=== PATIENT | female | born 1950 | race Caucasian/White ===

== ENCOUNTER 2017-06-06 10:21 | Outpatient (CLI) | payer MEDICARE, OTHER ==
--- NOTE | 2017-06-06 17:01 | XRAY Report ---
TWO VIEW CHEST: 06/06/2017 CLINICAL INDICATION: Cough. FINDINGS: Frontal and lateral views of the chest demonstrate a normal cardiac silhouette. Minimal linear atelectasis or scarring is seen at the left base. No effusion or pneumothorax is present. IMPRESSION: MINIMAL LEFT BASILAR ATELECTASIS OR SCARRING. TD: 06/06/2017 17:00
== END 2017-06-06 10:22 | disposition home or self-care (01) ==
LOC: DI 10:21
PROVIDERS: ATTEND Family Medicine
DX: J98.11 Atelectasis (principal)
CPT/HCPCS: 71046

== ENCOUNTER 2019-03-19 09:24 | Day surgery (SDC) | payer MEDICARE, OTHER ==
[2019-03-19] MEDS ORDERED: LACTATED RINGERS 1,000 ML IV ONE (09:56)
[2019-03-19 11:40] VITALS: BP 117/90
== END 2019-03-19 09:25 | disposition home or self-care (01) ==
LOC: SDS 09:24
PROVIDERS: ATTEND Surgery
PROC: 0DJD8ZZ Inspection of Lower Intestinal Tract, Via Natural or Artificial Opening Endoscopic (ICD-10-PCS; principal; 2019-03-19 10:45)
DX: Z12.11 Encounter for screening for malignant neoplasm of colon (principal); Z85.038 Personal history of other malignant neoplasm of large intestine; Z98.0 Intestinal bypass and anastomosis status; Z90.49 Acquired absence of other specified parts of digestive tract
CPT/HCPCS: G0105; J7120

== ENCOUNTER 2020-02-17 10:19 | Outpatient (CLI) | payer MEDICARE, OTHER ==
--- NOTE | 2020-02-17 14:47 | XRAY Report ---
PROCEDURE: Chest 2 View X-Ray INDICATIONS: PERSISTENT COUGH X 2 YEARS TECHNIQUE: 2 view(s) of the chest. COMPARISON: Chest x-ray 06/06/2017 FINDINGS: Surgical changes and devices: Cholecystectomy clips. Lungs and pleura: Minimal left costophrenic angle blunting suggestive of scarring. No consolidations. Mediastinum: Mediastinal contours are normal. Heart size is normal. Bones and chest wall: No suspicious bony abnormalities. Soft tissues appear unremarkable. IMPRESSION: No acute pulmonary process. Reviewed by: Na Esquivel MD on 02/17/2020 2:46 PM PDT Approved by: Na Esquivel MD on 02/17/2020 2:46 PM PDT Station ID: [id number]
== END 2020-02-17 10:20 | disposition home or self-care (01) ==
LOC: DI.S 10:19
PROVIDERS: ATTEND Family Medicine
DX: R05 Cough (principal); R94.2 Abnormal results of pulmonary function studies
CPT/HCPCS: 71046

== ENCOUNTER 2021-03-24 10:51 | Outpatient (CLI) | payer MEDICARE, OTHER ==
--- NOTE | 2021-03-24 11:43 | XRAY Report ---
PROCEDURE: Lumbar Spine 2 View INDICATIONS: IMPAIRMENT OF GAIT AND BALANCE TECHNIQUE: 3 views of the lumbar spine were acquired. COMPARISON: None. FINDINGS: No definite fracture although study sensitivity is severely suboptimal secondary to scoliosis and dis cogenic changes. There is lumbar levoscoliosis. Scattered multilevel endplate spurring and diffuse fa cet arthropathy. Diffuse moderate narrowing of the lumbar disc spaces. IMPRESSION: Lumbar scoliosis. Multilevel lumbar spondylosis and facet disease. Reviewed by: Momo Bowen MD on 03/24/2021 11:42 AM PST Approved by: Momo Bowen MD on 03/24/2021 11:42 AM PST Station ID: [id number]
--- NOTE | 2021-03-24 11:45 | XRAY Report ---
PROCEDURE: Hip w/Pelvis 1V LT INDICATIONS: L HIP PAIN/IMPAIRMENT OF GAIT BALANCE TECHNIQUE: AP pelvis with lateral view(s) of the left hip(s). COMPARISON: None. FINDINGS: Severe left hip joint degeneration with [id number] appearance. There is marked subchondral cystic c hanges and spurring/sclerosis. Surgical clips projecting in the pelvis. There is moderate to severe r ight hip joint degeneration. Pelvic tilt is noted, right higher than left. IMPRESSION: Severe bilateral hip joint degeneration, left greater than right. Right higher than left pelvic tilt. Reviewed by: Momo Bowen MD on 03/24/2021 11:43 AM PST Approved by: Momo Bowen MD on 03/24/2021 11:43 AM PST Station ID: [id number]
--- NOTE | 2021-03-24 11:48 | DEXA Report ---
PROCEDURE: Dexa Spine and/or Hip INDICATIONS: LBP, LT HIP PAIN, IMPAIRMENT OF GAIT, POSTMENOPAUSE TECHNIQUE: Dual energy x-ray absorptiometry (DXA) was performed on a [employer] System. Regions measur ed are the AP Spine, femoral neck, and if needed forearm. COMPARISON: March 24, 2021 FINDINGS: Lumbar Spine: Bone Mineral Density 0.97 g/cm/cm,T score -1.6, osteopenia Left Femoral Neck: Bone Mineral Density 0.635 g/cm/cm, T score -2.9, osteoporosis (T score greater or equal to -1.0: NORMAL) (T score from -1.1 to -2.4: OSTEOPENIA) (T score less than or equal to -2.5 to: OSTEOPOROSIS) Impression: Bone mineral density consistent with osteoporosis and increased fracture risk. Patients with diagnosis of osteoporosis or osteopenia should have regular bone mineral density assess ment. For those eligible for Medicare, routine testing is allowed once every 2 years. Testing frequ ency can be increased for patients who have rapidly progressing disease or for those who are receivin g medical therapy to restore bone mass. Reviewed by: Jong Marshall MD on 03/24/2021 11:47 AM PST Approved by: Jong Marshall MD on 03/24/2021 11:47 AM PST Station ID: [id number]
== END 2021-03-24 10:52 | disposition home or self-care (01) ==
LOC: DI 10:51
PROVIDERS: ATTEND Family Medicine
DX: M47.816 Spondylosis without myelopathy or radiculopathy, lumbar region (principal); Z78.0 Asymptomatic menopausal state; M41.9 Scoliosis, unspecified; M16.0 Bilateral primary osteoarthritis of hip

== ENCOUNTER 2023-05-08 09:50 | Outpatient (CLI) | payer MEDICARE, OTHER ==
--- NOTE | 2023-05-08 13:16 | DEXA Report ---
PROCEDURE: Dexa Spine and/or Hip INDICATIONS: OSTEOPOROSIS TECHNIQUE: Dual energy x-ray absorptiometry (DXA) was performed on a [employer] System. Regions measur ed are the AP Spine, femoral neck, and if needed forearm. COMPARISON: DEXA 03/24/2021 FINDINGS: Lumbar Spine: Bone Mineral Density 1.111 g/cm/cm,T score -0.6 compared to -1.6. Left Femoral Neck: Bone Mineral Density 0.07 g/cm/cm, T score -2.4, compared to -2.9. Left Hip: Bone Mineral Density 0.584 g/cm/cm,T score -3.4, compared to -3.7. (T score greater or equal to -1.0: NORMAL) (T score from -1.1 to -2.4: OSTEOPENIA) (T score less than or equal to -2.5 to: OSTEOPOROSIS) Impression: By WHO criteria, this patient has osteoporosis within the left hip as well as severe osteopenia in th e left femoral neck although improved compared to prior exam. Patients with diagnosis of osteoporosis or osteopenia should have regular bone mineral density assess ment. For those eligible for Medicare, routine testing is allowed once every 2 years. Testing frequ ency can be increased for patients who have rapidly progressing disease or for those who are receivin g medical therapy to restore bone mass. Reviewed by: Na Esquivel MD on 05/08/2023 1:15 PM PST Approved by: Na Esquivel MD on 05/08/2023 1:15 PM PST Station ID: [id number]
== END 2023-05-08 09:51 | disposition home or self-care (01) ==
LOC: DI 09:50
PROVIDERS: ATTEND Family Medicine
DX: M81.0 Age-related osteoporosis without current pathological fracture (principal)

== ENCOUNTER 2023-09-03 11:48 | Outpatient (CLI) | payer MEDICARE, OTHER ==
[2023-09-03] MEDS ORDERED: DIATRIZOATE MEGLU/DIATRIZO SOD 30 ML BOTTLE PO ONE (11:59)
[2023-09-03] MEDS ORDERED: iohexoL-300 100 ML VIAL ONE (11:59)
[2023-09-03 12:32] LABS: CREATININE 0.7 mg/dL (0.6-1.3)
[2023-09-03] MEDS: iohexoL-300 100 ML VIAL IVP ONE (13:49)
[2023-09-03] MEDS: DIATRIZOATE MEGLU/DIATRIZO SOD 30 ML BOTTLE PO ONE (13:51)
--- NOTE | 2023-09-03 15:38 | CT Report ---
PROCEDURE: Abdomen/Pelvis W INDICATIONS: DIARRHEA CONTRAST: Omnipaque 300 100ml TECHNIQUE: After the administration of intravenous contrast, a CT scan of the abdomen and pelvis was performed. Images were recorded and evaluated at appropriate window settings. Reformats: coronal and sagittal. F or radiation dose reduction, the following was used: automated exposure control, adjustment of mA and /or kV according to patient size. COMPARISON: X-ray lumbar spine, 03/24/2021. FINDINGS: Image quality: Diagnostic. Lower chest: Unremarkable. Liver: No solid mass. Gallbladder and biliary tree: Gallbladder is surgically removed. Mild intrahepatic and intrahepatic b iliary dilation. Spleen: No splenomegaly. Pancreas: No pancreatic ductal dilation. Adrenals: No adrenal nodule. Kidneys and ureters: There is a horseshoe kidney. There is a 1.5 cm simple cyst in the inferior pole of the right kidney. Mild bilateral renal pelviectasis. No solid mass. Stomach, bowel and peritoneum: No bowel distension. No pathologic free fluid. There is a large amount of stool in colon. Lymph nodes: No central or retroperitoneal adenopathy. Vessels: No infrarenal aortic aneurysm. PELVIS Reproductive organs: Unremarkable. Bladder: No abnormal wall thickening, accounting for underdistention. Pelvic lymph nodes: No pelvic adenopathy by size criteria. Bones: No aggressive osseous abnormality. Moderate levoscoliosis. [id number] degenerative dis c and facet disease in lumbar spine. Osteopenia. Mild compression fracture of L3. Other: There is a small fat-containing umbilical hernia, and a small fat-containing right inguinal he rnia. IMPRESSION: 1. No acute abnormalities abdominal or pelvis. 2. A large amount of stool in colon. 3. Horseshoe kidney. 4. Scoliosis and [id number] spondylitic changes in lumbar spine. 5. Osteopenia and mild chronic compression fracture of L3. Reviewed by: Brittny Tanner MD on 09/03/2023 3:37 PM PDT Approved by: Brittny Tanner MD on 09/03/2023 3:37 PM PDT Station ID: [id number]
== END 2023-09-03 11:49 | disposition home or self-care (01) ==
LOC: LAB 11:48
PROVIDERS: ATTEND Family Medicine
DX: K86.89 Other specified diseases of pancreas (principal); R19.7 Diarrhea, unspecified; Q63.1 Lobulated, fused and horseshoe kidney; M47.816 Spondylosis without myelopathy or radiculopathy, lumbar region; M85.88 Other specified disorders of bone density and structure, other site; M48.56XD Collapsed vertebra, not elsewhere classified, lumbar region, subsequent encounter for fracture with routine healing
CPT/HCPCS: 36415; 74177; 82565; Q9963; Q9967